=== PATIENT | male | born 1940 | race Caucasian/White ===

== ENCOUNTER 2023-03-31 06:14 | Day surgery (SDC) | payer MEDICARE, OTHER ==
[2023-03-31] MEDS ORDERED: Sodium Chloride 0.9% 1,000 ML IV SCH (07:00)
[2023-03-31] MEDS ORDERED: fentaNYL 50 MCG/ML SDV ONE (07:20)
[2023-03-31] MEDS ORDERED: Propofol 200 MG/20 ML SDV ONE (07:20)
== END 2023-03-31 10:15 | disposition home or self-care (01) ==
LOC: JP.SDS 06:14
PROVIDERS: ATTEND Surgery
DX: Z12.11 Encounter for screening for malignant neoplasm of colon (principal); I10 Essential (primary) hypertension; E78.5 Hyperlipidemia, unspecified; I48.20 Chronic atrial fibrillation, unspecified; G47.33 Obstructive sleep apnea (adult) (pediatric); E66.9 Obesity, unspecified; Z88.6 Allergy status to analgesic agent
CPT/HCPCS: G0121; J2704; J3010; J7030

== ENCOUNTER 2024-02-28 15:35 | Emergency (ER) | payer MEDICARE, OTHER | END 2024-02-28 19:09 | disposition home or self-care (01) | LOC: JP.ED 15:35 | DX: S76.101A Unspecified injury of right quadriceps muscle, fascia and tendon, initial encounter (principal); Z90.49 Acquired absence of other specified parts of digestive tract; Z88.8 Allergy status to other drugs, medicaments and biological substances; W01.0XXA Fall on same level from slipping, tripping and stumbling without subsequent striking against object, initial encounter | CPT/HCPCS: 73562-26-RT; 73562-RT; 73700-26-RT; 73700-RT; 76377; 99284 ==

== ENCOUNTER 2024-03-05 07:14 | Day surgery (SDC) | payer MEDICARE, OTHER ==
[2024-03-05 07:58] LABS: HEMATOCRIT 47.9 % (38.4-49.7); HEMOGLOBIN 16.3 g/dL (12.9-16.9); MEAN CORPUSCULAR HEMOGLOBIN 31.3 pg (31.6-35.5); MEAN CORPUSCULAR VOLUME 91.9 fL (81.4-99.0); RED BLOOD CELL COUNT 5.21 M/uL (4.14-5.76); WHITE BLOOD CELL COUNT,WBC 8.8 K/uL (3.2-11.0)
[2024-03-05 08:18] LABS: INR 1.3; PROTHROMBIN TIME 13.2 sec (9.2-10.6); PTT,PARTIAL THROMBOPLSTIN TIME 31.3 sec (21.8-27.3)
[2024-03-05] MEDS: Nozin Nasal Sanitizer NASBOTH ONE (08:19)
[2024-03-05 08:20] LABS: A/G RATIO 1.1 (1.2-2.2); ALANINE AMINOTRANSFERASE,ALT 27 U/L (12-78); ALBUMIN 3.8 g/dL (3.4-5.0); ALKALINE PHOSPHATASE 90 U/L (46-116); ASPARTATE AMNIOTRANSFERASE,AST 29 U/L (15-37); BILIRUBIN TOTAL 1.8 mg/dL (0.2-1.0); BLOOD UREA NITROGEN,BUN 30 mg/dL (7-18); CARBON DIOXIDE,CO2 25 mmol/L (21-32); CHLORIDE,CL 105 mmol/L (100-108); CREATININE 1.6 mg/dL (0.8-1.3); EST CRCL DRUG DOSING (CG) 34.98 mL/min; ESTIMATED GFR 42 mL/min (>60); GLUCOSE RANDOM 107 mg/dL (74-106); POTASSIUM,K 4.4 mmol/L (3.6-5.2); PROTEIN TOTAL,TP 7.3 g/dL (6.4-8.2); SODIUM,NA 139 mmol/L (140-148)
[2024-03-05 08:22] LABS: ANION GAP 13.4 mmol/L (5.0-14.0)
[2024-03-05] MEDS: Lactated Ringers 1,000 ML IV SCH (08:41)
[2024-03-05] MEDS ORDERED: Rocuronium 50 MG/5 ML Vial ONE (09:45)
[2024-03-05] MEDS ORDERED: Succinylcholine 200 MG/10 ML MDV ONE (09:45)
[2024-03-05] MEDS ORDERED: Dexamethasone 4 MG/ML SDV ONE (09:45)
[2024-03-05] MEDS ORDERED: Neostigmine Methylsulfate 10 MG/10 ML MDV ONE (09:45)
[2024-03-05] MEDS ORDERED: Ondansetron 4 MG/2 ML SDV ONE (09:45)
[2024-03-05] MEDS ORDERED: Glycopyrrolate 0.2 MG/ML 5 ML MDV ONE (09:45)
[2024-03-05] MEDS ORDERED: Propofol 200 MG/20 ML SDV ONE (09:45)
[2024-03-05] MEDS ORDERED: fentaNYL 250 MCG/5 ML SDV ONE (09:47)
[2024-03-05] MEDS: ceFAZolin 2 GM in Premix Bag 1 BAG IV ONE (09:50)
[2024-03-05] MEDS ORDERED: fentaNYL 100 MCG/2 ML SDV ONE (10:19)
[2024-03-05] MEDS: Bupivacaine 0.5% 30 ML SDV ONE (11:00)
[2024-03-05] MEDS ORDERED: Lactated Ringers 1,000 ML ONE (11:08)
[2024-03-05] MEDS: Acetaminophen/oxyCODONE 325-5 MG Tab PO PRN (12:19)
[2024-03-05] MEDS: Ketorolac 15 MG/ML SDV IVPUSH ONE (13:27)
[2024-03-05] MEDS ORDERED: Morphine 2 MG/ML SYRINGE IVPUSH PRN (15:02)
[2024-03-05] MEDS ORDERED: Docusate Sodium 100 MG Cap PO PRN (15:02)
[2024-03-05] MEDS ORDERED: Magnesium Hydroxide 400 MG/5 ML Susp 30 ML Cup PO PRN (15:02)
[2024-03-05 15:37] LABS: INR 1.3; PROTHROMBIN TIME 13.1 sec (9.2-10.6)
[2024-03-05] MEDS: Acetaminophen 325 MG Tab PO SCH (17:23)
[2024-03-05] MEDS: Warfarin 5 MG Tab PO SCH (20:32)
[2024-03-05] MEDS: Losartan 50 MG Tab PO SCH (20:34)
[2024-03-05] MEDS: Sodium Chloride 0.9% 1,000 ML IV SCH (20:35)
[2024-03-05] MEDS: Nozin Nasal Sanitizer NASBOTH SCH (23:07)
[2024-03-05] MEDS: oxyCODONE 5 MG Tab PO PRN (23:28)
[2024-03-06] MEDS: Ondansetron 4 MG/2 ML SDV IVPUSH PRN (00:32)
[2024-03-06] MEDS: LUTEIN PO SCH (08:13)
[2024-03-06] MEDS: [UNRECOGNIZED DRUG - OTHER] PO SCH (08:13)
[2024-03-06] MEDS: VIT C PO SCH (08:13)
== END 2024-03-06 10:35 | disposition home or self-care (01) ==
LOC: JP.SDS 07:14 → JP.MS 15:02 → JP.SDS 03-06 10:35
PROVIDERS: ATTEND Specialist
DX: S76.111A Strain of right quadriceps muscle, fascia and tendon, initial encounter (principal); I10 Essential (primary) hypertension; X58.XXXA Exposure to other specified factors, initial encounter; Z79.01 Long term (current) use of anticoagulants
CPT/HCPCS: 01250; 27385; 36415; 80053; 85027; 85610; 85730; 93005; 93010; 97116; 97161; A9270; J0330; J0665; J0690; J1100; J1596; J1885; J2405; J2704; J2710; J3010; J7030; J7120; J3490